=== PATIENT | female | born 1975 | race Caucasian/White ===

== ENCOUNTER 2016-09-30 08:09 | Emergency (ER) | payer BC, OTHER ==
[2016-09-30 08:17] VITALS: BP 100/71
--- NOTE | 2016-09-30 08:23 | UC ---
Throat Pain/Nasal Mukul HPI - HPI Summary HPI Summary: Patient c/o sneezing, nasal drainage, and headache starting about 2 weeks ago. Patient states she has allergies and has been taking zyrtec with no relief. Itchy watery eyes and nose. No fever, no cough or headache or tooth pain [ End ] - History of Current Complaint Chief Complaint: UCRespiratory Stated Complaint: SINUS CONGESTION,PLUGGED EARS-ALLERGIES Time Seen by Provider: 09/30/16 08:21 Hx Obtained From: Patient Hx Last Menstrual Period: 09/06/16 ?: No Onset/Duration: Gradual Onset Cough: Nonproductive Associated Signs & Symptoms: Positive: Sinus Discomfort, Nasal Discharge - Epiglottits Risk Factors Epiglottis Risk Factors: Negative - Allergies/Home Medications Allergies/Adverse Reactions: Allergies Allergy/AdvReac Type Severity Reaction Status Date / Time seasonal Allergy Headache Uncoded 09/30/16 08:17 Home Medications: Home Medications Cetirizine* [ZyrTEC 10 MG TAB*] 10 mg PO DAILY 09/30/16 [History Confirmed 09/30] PMH/Surg Hx/FS Hx/Imm Hx Previously Healthy: Yes Endocrine History Of: Denies: Diabetes Cardiovascular History Of: Denies: Cardiac Disorders Respiratory History Of: Denies: COPD GI/ History Of: Denies: Gastroesophageal Reflux Cancer History Of: Denies: Lung Cancer - Surgical History Surgical History: None - Family History Known Family History: Positive: None - Social History Occupation: Employed Full-time - [employer] Lives: With Family Alcohol Use: Occasionally Substance Use Type: None Smoking Status (MU): Never Smoked Tobacco Review of Systems Constitutional: Fatigue Skin: Negative Eyes: Negative ENT: Nasal Discharge Respiratory: Negative Cardiovascular: Negative Gastrointestinal: Negative Genitourinary: Negative Motor: Negative Neurovascular: Negative Musculoskeletal: Negative Neurological: Negative Psychological: Negative All Other Systems Reviewed And Are Negative: Yes Physical Exam Triage Information Reviewed: Yes Appearance: Well-Appearing, No Pain Distress, Well-Nourished Vital Signs: Initial Vital Signs Temp 98.3 F 09/30/16 08:11 Pulse 74 09/30/16 08:11 Resp 16 09/30/16 08:11 BP 100/71 09/30/16 08:11 Pulse Ox 98 09/30/16 08:11 Vital Signs Reviewed: Yes Eye Exam: Normal ENT Exam: Normal ENT: Positive: Normal ENT inspection, Pharynx normal, Nasal congestion, TMs normal, TM dull - left. Negative: Nasal drainage, TM bulging, TM red, Tonsillar swelling, Tonsillar exudate Dental Exam: Normal Neck exam: Normal Neck: Positive: 1 Respiratory Exam: Normal Cardiovascular Exam: Normal Musculoskeletal Exam: Normal Neurological Exam: Normal Psychological Exam: Normal Skin Exam: Normal Throat Pain/Nasal Course/Dx - Differential Dx/Diagnosis Differential Diagnosis/HQI/PQRI: Laryngitis, Pharyngitis, Sinusitis, Tonsillitis , URI Provider Diagnoses: Allergies Seasonal Discharge - Discharge Plan Condition: Good Disposition: HOME Prescriptions: Fluticasone NASAL SPRAY 50MCG* [Flonase NASAL SPRAY 50MCG*] 2 spray RIGHT NARE DAILY #1 btl LevoCETirizine TAB (NF) [Xyzal TAB (NF)] 5 mg PO DAILY #30 tab Patient Education Materials: Allergies (ED) Referrals: Mirian Granda MD [Primary Care Provider] - 3 Days (If your symptoms are not improved) Additional Instructions: Also please consider using a Netti Pot or Adithya Med Sinus Rinse each night for 10 days
== END 2016-09-30 08:44 | disposition home or self-care (01) ==
LOC: UCCORT 08:09
DX: J30.2 Other seasonal allergic rhinitis (principal)
CPT/HCPCS: 99202; G0463

== ENCOUNTER 2017-07-22 07:15 | Emergency (ER) | payer BC ==
[2017-07-22 07:40] VITALS: BP 118/58
--- NOTE | 2017-07-22 08:00 | UC ---
Ear Complaint HPI - HPI Summary HPI Summary: 42 yo female with bilateral otagia she has had runny nose/post nasal drip x 1 week no recent fever no GARCIA or dizziness no n/v/d no myalgias - History of Current Complaint Chief Complaint: UCGeneralIllness Stated Complaint: HEAD CONGESTION, EAR PAIN Time Seen by Provider: 07/22/17 07:54 Hx Obtained From: Patient Hx Last Menstrual Period: 09/06/16 Onset/Duration: Gradual Onset, Lasting Days Severity Initially: Mild Severity Currently: Mild Pain Intensity: 2 Pain Scale Used: 0-10 Numeric Aggravating Factors: Other Associated Signs/Symptoms: Positive: URI Symptoms - Allergies/Home Medications Allergies/Adverse Reactions: Allergies Allergy/AdvReac Type Severity Reaction Status Date / Time seasonal Allergy Headache Uncoded 07/22/17 07:39 PMH/Surg Hx/FS Hx/Imm Hx Previously Healthy: Yes - Surgical History Surgical History: None - Family History Known Family History: Positive: Diabetes Negative: Cardiac Disease, Hypertension - Social History Alcohol Use: Occasionally Substance Use Type: None Smoking Status (MU): Never Smoked Tobacco Review of Systems Constitutional: Negative Skin: Negative Eyes: Negative ENT: Ear Ache, Nasal Discharge, Sinus Congestion, Sinus Pain/Tenderness Respiratory: Negative Cardiovascular: Negative Gastrointestinal: Negative Genitourinary: Negative Motor: Negative Neurovascular: Negative Musculoskeletal: Negative Neurological: Negative Psychological: Negative Is Patient Immunocompromised?: No All Other Systems Reviewed And Are Negative: Yes Physical Exam Triage Information Reviewed: Yes Appearance: Well-Appearing, No Pain Distress, Well-Nourished Vital Signs: Initial Vital Signs Temp 97.4 F 07/22/17 07:35 Pulse 92 07/22/17 07:35 Resp 14 07/22/17 07:35 BP 118/58 07/22/17 07:35 Pulse Ox 99 07/22/17 07:35 Vital Signs Reviewed: Yes Eyes: Positive: Conjunctiva Clear ENT: Positive: Hearing grossly normal, Nasal congestion, Nasal drainage, Sinus tenderness - mild, Uvula midline. Negative: TMs normal - left TM retracted/ right poorly visualized due to cerumen, Tonsillar swelling, Tonsillar exudate, Trismus, Muffled voice, Hoarse voice, Dental tenderness Dental Exam: Normal Neck: Positive: Supple, Nontender, No Lymphadenopathy Respiratory: Positive: Lungs clear, Normal breath sounds, No respiratory distress, No accessory muscle use Cardiovascular: Positive: RRR, No Murmur Neurological: Positive: Alert Psychological Exam: Normal Skin Exam: Normal Ear Complaint Course/Dx - Differential Dx/Diagnosis Provider Diagnoses: viral URI. serous otitis media Discharge - Discharge Plan Condition: Stable Disposition: HOME Prescriptions: Amoxicillin PO (*) [Amoxicillin 875 MG (*)] 875 mg PO BID #20 tab Patient Education Materials: Serous Otitis Media (ED) Referrals: No Primary Care Phys,NOPCP [Primary Care Provider] - Additional Instructions: warm facial compresses saline nasal spray recheck in 5-7 days if not better
== END 2017-07-22 08:03 | disposition home or self-care (01) ==
LOC: UCCORT 07:15
DX: J06.9 Acute upper respiratory infection, unspecified (principal); H65.93 Unspecified nonsuppurative otitis media, bilateral; H61.22 Impacted cerumen, left ear
CPT/HCPCS: 99212; G0463